=== PATIENT | male | born 2000 | race Caucasian/White ===

== ENCOUNTER 2022-04-23 11:04 | Emergency (ER) | payer OTHER ==
[~2022-04-23] VITALS: Ht 193 cm; Wt 68.0 kg
== END 2022-04-23 12:40 | disposition home or self-care (01) ==
LOC: ER 11:04
DX: S61.211A Laceration without foreign body of left index finger without damage to nail, initial encounter (principal); Z23 Encounter for immunization; W26.0XXA Contact with knife, initial encounter; Y99.0 Civilian activity done for income or pay
CPT/HCPCS: 90471; 90714; 99282-25

== ENCOUNTER → 2023-03-09 | Outpatient (CLI) | payer OTHER | LOC: PLD 13:42 → LAB SHORT 13:42 | DX: R21 Rash and other nonspecific skin eruption (principal) | CPT/HCPCS: 88312 ==

== ENCOUNTER 2023-10-23 17:27 | Emergency (ER) | payer OTHER ==
[~2023-10-23] VITALS: Ht 193 cm; Wt 72.6 kg
[2023-10-23 17:34] VITALS: BP 136/76
== END 2023-10-23 18:32 | disposition home or self-care (01) ==
LOC: ER 17:27
DX: H92.01 Otalgia, right ear (principal); H93.12 Tinnitus, left ear; F17.290 Nicotine dependence, other tobacco product, uncomplicated; V43.52XA Car driver injured in collision with other type car in traffic accident, initial encounter
CPT/HCPCS: 99282

== ENCOUNTER 2024-04-22 18:20 | Emergency (ER) | payer OTHER ==
[~2024-04-22] VITALS: Ht 193 cm; Wt 70.3 kg
[2024-04-22 18:49] VITALS: BP 135/81
[2024-04-22] MEDS ORDERED: Diphth,Pertuss(Acell),Tet Vac 0.5 ML VIAL IM ONE (19:40)
== END 2024-04-22 20:00 | disposition home or self-care (01) ==
LOC: ER 18:20
DX: S61.217A Laceration without foreign body of left little finger without damage to nail, initial encounter (principal); W26.0XXA Contact with knife, initial encounter; Z88.8 Allergy status to other drugs, medicaments and biological substances
CPT/HCPCS: 90715